=== PATIENT | male | born 1995 | race Caucasian/White ===

== ENCOUNTER 2020-07-17 07:50 | Emergency (ER) | payer OTHER ==
[~2020-07-17] VITALS: Ht 182.9 cm; Wt 77.1 kg
[2020-07-17 08:47] LABS: ABSOLUTE NEUTROPHILS 3.4 thou/uL (1.4-8.2); BASOPHILS 0.9 % (0.0-2.0); EOSINOPHILS 10.5 % (0.0-3.0); HEMATOCRIT 42.8 % (42.0-52.0); HEMOGLOBIN 14.4 gm/dL (14.0-18.0); LYMPHOCYTES 26.7 % (24.0-44.0); MCH 30.7 pg (26.0-34.0); MCHC 33.6 g/dL (28.0-37.0); MCV 91.4 fL (80.0-100.0); MONOCYTES 7.8 % (1.0-8.0); PLATELET COUNT 288 thou/uL (150-400); POLYS 54.1 % (36.0-66.0); RBC 4.68 mil/uL (4.50-6.00); RDW 13.2 % (10.5-14.5); WBC 6.2 thou/uL (4.0-11.0)
[2020-07-17 08:50] LABS: CALCIUM 8.9 mg/dL (8.5-10.1)
[2020-07-17 10:06] VITALS: BP 127/88
[2020-07-17] MEDS ORDERED: PROAIR HFA8.5 GM INH (10:13)
--- NOTE | 2020-07-18 07:52 | EKG ---
[facility] [place] [address] ELECTROCARDIOGRAM REPORT Name: LAURIE BEDOYA Room #: DEP [facility]#: [id number] Admission: 07/17/20 Attend Phys: Discharge: 07/17/20 Date of : [birth year] Report #: [id number] THIS REPORT FOR: cc: FAM - Family physician unknown FAM - Family physician unknown Getachew Mccullough MD [facility] ~ THIS REPORT FOR: //name// [facility] ED Test Date: 2020-07-17 Test Time: 08:40:45 Pat Name: LAURIE BEDOYA Department: Room: Gender: Supervisor Paper Machine: [place] : 1995 Requested By: Michael Boyle Order Number: [id number] MD: Getachew Mccullough Measurements Intervals [place] Rate: 84 P: 63 IN: 163 QRS: -27 QRSD: 105 T: 21 QT: 352 QTc: 417 Interpretive Statements Sinus rhythm Borderline left axis deviation RSR' in V1 or V2, probably normal variant No previous ECG available for comparison Electronically Signed On 07-18-2020 7:52:20 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
== END 2020-07-17 12:32 | disposition home or self-care (01) ==
LOC: ER 07:50
PROVIDERS: Emergency Medicine
DX: R06.02 Shortness of breath (principal); Z88.0 Allergy status to penicillin; Z20.828 Contact with and (suspected) exposure to other viral communicable diseases

== ENCOUNTER 2020-07-23 10:40 | Emergency (ER) | payer OTHER ==
[~2020-07-23] VITALS: Ht 182.9 cm; Wt 77.1 kg
[~2020-07-23 10:40] MED LIST: PROAIR HFA8.5 GM INH
[2020-07-23 12:03] LABS: ABSOLUTE NEUTROPHILS 3.7 thou/uL (1.4-8.2); BASOPHILS 0.9 % (0.0-2.0); EOSINOPHILS 5.5 % (0.0-3.0); HEMOGLOBIN 14.8 gm/dL (14.0-18.0); LYMPHOCYTES 23.4 % (24.0-44.0); MCH 31.3 pg (26.0-34.0); MCHC 34.3 g/dL (28.0-37.0); MCV 91.2 fL (80.0-100.0); MONOCYTES 7.6 % (1.0-8.0); PLATELET COUNT 282 thou/uL (150-400); POLYS 62.6 % (36.0-66.0); RBC 4.71 mil/uL (4.50-6.00); RDW 13.6 % (10.5-14.5); WBC 5.9 thou/uL (4.0-11.0)
[2020-07-23 12:08] LABS: CALCIUM 8.8 mg/dL (8.5-10.1); POTASSIUM 3.8 mmol/L (3.5-5.1)
[2020-07-23 13:11] VITALS: BP 117/84
== END 2020-07-23 13:12 | disposition home or self-care (01) ==
LOC: ER 10:40
PROVIDERS: Nurse Practitioner
DX: R06.00 Dyspnea, unspecified (principal); Z79.899 Other long term (current) drug therapy; Z88.0 Allergy status to penicillin; Z20.828 Contact with and (suspected) exposure to other viral communicable diseases